=== PATIENT | female | born 1960 ===

== ENCOUNTER 2018-01-07 12:35 | Emergency (ER) | payer MEDICAID ==
[~2018-01-07] VITALS: Ht 162.6 cm; Wt 65.9 kg
[2018-01-07 12:37] VITALS: PULSE 94; TEMP 98.5
[2018-01-07] MEDS ORDERED: HCTZ 25MG TAB25 MG PO (13:03)
[2018-01-07] MEDS ORDERED: ZYRTEC5 MG PO (13:03)
[2018-01-07] MEDS ORDERED: NEURONTIN600 MG/TAB PO (13:04)
[2018-01-07] MEDS ORDERED: TOPROL XL 25MG25 MG PO (13:04)
[2018-01-07] MEDS ORDERED: ZANAFLEX CAPSULE4 MG PO (13:05)
[2018-01-07 13:34] LABS: BASO % 0.4 % (0.0-2.0); EOS # 0.1 (0.0-0.7); EOS % 0.7 % (0-4.0); GRAN # 5.1 (1.4-6.5); GRAN % 62.4 % (42.2-75.2); HEMATOCRIT 37.2 % (37.0-47.0); LYMPH # 2.7 (1.2-3.4); LYMPH % 32.2 % (20.0-51.0); MEAN CELL VOLUME 90 fl (80.0-100.0); MEAN CORPUSCULAR HEMOGLOBIN 29 pg (27.0-31.0); MEAN CORPUSCULAR HGB CONC 32 g/dl (33.0-37.0); MEAN PLATELET VOLUME 9.5 fl (7.4-10.4); MONO # 0.3 (0.1-0.6); MONO % 4.1 % (1.7-9.3); PLATELET COUNT 512 K/mm3 (130-400); RED BLOOD COUNT 4.12 M/mm3 (4.10-5.30)
[2018-01-07 13:42] LABS: HEMOGLOBIN 11.8 g/dl (12.5-16.0)
[2018-01-07 13:47] LABS: ALBUMIN 2.5 gm/dL (3.5-5.0); BILIRUBIN,TOTAL 0.1 mg/dL (0.0-1.0); CALCIUM 7.6 mg/dL (8.4-10.2); CREATININE, serum 3.42 mg/dL (0.52-1.25); POTASSIUM 4.3 mmol/L (3.4-5.0); TOTAL PROTEIN 6.4 gm/dL (6.4-8.2)
[2018-01-07 14:05] LABS: COLLECTION METHOD CLEAN CATCH
[2018-01-07 14:20] LABS: MUCOUS Present /lpf; PH 5 (5-8); URINE APPEARANCE Hazy; URINE BACTERIA Rare /hpf; URINE BILIRUBIN Negative (NEGATIVE); URINE BLOOD Negative (NEGATIVE); URINE COLOR Yellow; URINE GLUCOSE 1+ (NEGATIVE); URINE KETONE Negative (NEGATIVE); URINE LEUKOCYTE ESTERASE Negative (NEGATIVE); URINE NITRATE Negative (NEGATIVE); URINE PROTEIN(semi-quant) 3+ (NEGATIVE); URINE RBC 0-2 /hpf; URINE UROBILINOGEN Negative (NEGATIVE)
[2018-01-07] MEDS ORDERED: NORVASC 5MG5 MG/TAB PO (14:53)
[2018-01-07] MEDS ORDERED: NORCO 325 MG-51 TAB PO (14:53)
[2018-01-07] MEDS ORDERED: TOPROL XL 50MG50 MG PO (14:53)
[2018-01-07 15:58] VITALS: BP 223/119
== END 2018-01-07 16:00 | disposition home or self-care (01) ==
LOC: COL.ER 12:35
PROVIDERS: Physician Assistant
DX: I12.9 Hypertensive chronic kidney disease with stage 1 through stage 4 chronic kidney disease, or unspecified chronic kidney disease (principal); N18.9 Chronic kidney disease, unspecified; M06.9 Rheumatoid arthritis, unspecified
CPT/HCPCS: J7030

== ENCOUNTER 2018-05-13 04:01 | Emergency (ER) | payer SELFPAY ==
[~2018-05-13] VITALS: Ht 162.6 cm; Wt 68.2 kg
[~2018-05-13 04:01] MED LIST: HCTZ 25MG TAB25 MG PO; NEURONTIN600 MG/TAB PO; NORCO 325 MG-51 TAB PO; NORVASC 5MG5 MG/TAB PO; TOPROL XL 25MG25 MG PO; TOPROL XL 50MG50 MG PO; ZANAFLEX CAPSULE4 MG PO; ZYRTEC 10MG10 MG PO
[2018-05-13 04:40] LABS: BASO % 0.2 % (0.0-2.0); EOS # 0.1 (0.0-0.7); EOS % 0.7 % (0-4.0); GRAN # 5.9 (1.4-6.5); GRAN % 72.1 % (42.2-75.2); LYMPH # 1.7 (1.2-3.4); LYMPH % 20.8 % (20.0-51.0); MEAN CELL VOLUME 82 fl (80.0-100.0); MEAN CORPUSCULAR HGB CONC 32 g/dl (33.0-37.0); MEAN PLATELET VOLUME 9.1 fl (7.4-10.4); MONO # 0.5 (0.1-0.6); MONO % 5.8 % (1.7-9.3); PLATELET COUNT 444 K/mm3 (130-400); RED BLOOD COUNT 2.95 M/mm3 (4.10-5.30); REDCELL DISTRIBUTION WIDTH-CV 17.5 % (11.5-14.5)
[2018-05-13] MEDS ORDERED: ASPERCREME85G TP (04:40)
[2018-05-13 04:42] LABS: HEMATOCRIT 24.1 % (37.0-47.0); HEMOGLOBIN 7.7 g/dl (12.5-16.0); MEAN CORPUSCULAR HEMOGLOBIN 26 pg (27.0-31.0)
[2018-05-13 04:47] LABS: INR 0.9 (0.8-3.0); PROTHROMBIN TIME 10.7 SECONDS (9.7-12.8)
[2018-05-13 04:49] LABS: PARTIAL THROMBOPLASTIN TIME 37.3 SECONDS (26.0-37.0)
[2018-05-13 04:50] LABS: ALBUMIN 2.7 gm/dL (3.5-5.0); BILIRUBIN,TOTAL 0.2 mg/dL (0.0-1.0); POTASSIUM 4.2 mmol/L (3.4-5.0); TOTAL PROTEIN 6.7 gm/dL (6.4-8.2)
[2018-05-13 04:54] LABS: CALCIUM 5.2 mg/dL (8.4-10.2); CREATININE, serum 9.5 mg/dL (0.52-1.25)
[2018-05-13 05:02] LABS: TROPONIN-I 0.013 ng/mL (0.000-0.034)
[2018-05-13 05:03] LABS: D-DIMER > 5250.00 ng/mLDDu (200-230)
[2018-05-13 05:23] LABS: POTASSIUM 4.2 mmol/L (3.4-5.0)
[2018-05-13 05:26] LABS: CALCIUM 5.2 mg/dL (8.4-10.2); CREATININE, serum 9.34 mg/dL (0.52-1.25)
[2018-05-13 05:33] VITALS: TEMP 97.5
[2018-05-13] MEDS ORDERED: NITRO-DUR0.4 MG/PAT (05:59)
[2018-05-13 07:02] VITALS: BP 170/87; PULSE 79
== END 2018-05-13 07:28 | disposition short-term general hospital (02) ==
LOC: COL.ER 04:01
PROVIDERS: Emergency Medicine
DX: N19 Unspecified kidney failure (principal); R07.89 Other chest pain; R06.00 Dyspnea, unspecified; E87.2 Acidosis; E83.51 Hypocalcemia; I10 Essential (primary) hypertension
CPT/HCPCS: J0610; J2270; J2405; J7030